=== PATIENT | female | born 1950 | race Caucasian/White ===

== ENCOUNTER 2016-12-31 11:20 | Emergency (ER) | payer MEDICARE, BC | END 2016-12-31 14:20 | disposition home or self-care (01) | LOC: ER1 11:20 | DX: S05.12XA Contusion of eyeball and orbital tissues, left eye, initial encounter (principal); I10 Essential (primary) hypertension; Z79.82 Long term (current) use of aspirin; W22.03XA Walked into furniture, initial encounter; Y93.89 Activity, other specified | CPT/HCPCS: 70450; 70480; 99283 ==

== ENCOUNTER → 2021-02-19 | Outpatient (CLI) | payer MEDICARE, BC ==
[~2021-02-19] MED LIST: CELEBREX 200MG200 MG PO; ELIQUIS 5 MG TAB5 MG PO; ELIQUIS2.5 MG PO; LEXAPRO10 MG PO; NEURONTIN 300300 MG PO; NORVASC 5 MG TAB5 MG PO; ULTRAM50 MG PO; ZANTAC300 MG PO
== END ==
LOC: LAB 15:42
DX: R06.02 Shortness of breath (principal); R60.0 Localized edema
CPT/HCPCS: 36415; 83880; 85379

== ENCOUNTER → 2021-02-22 | Outpatient (CLI) | payer MEDICARE, BC | LOC: US 14:36 | DX: R06.02 Shortness of breath (principal) | CPT/HCPCS: 93970 ==

== ENCOUNTER 2021-02-28 14:01 | Emergency (ER) | payer MEDICARE, BC ==
[2021-02-28 14:42] LABS: HEMOGLOBIN 14.2 gm/dl (12.3-15.3); RED BLOOD COUNT 4.66 M/UL (4.00-5.10); WHITE BLOOD COUNT 5.3 K/UL (4.5-11.0)
[2021-02-28 15:08] LABS: BUN/CREATININE RATIO 21 (0-10)
== END 2021-02-28 18:00 | disposition home or self-care (01) ==
LOC: ER1 14:01
PROVIDERS: Physician Assistant
DX: R00.1 Bradycardia, unspecified (principal); I10 Essential (primary) hypertension
CPT/HCPCS: 80053; 82550; 82553; 83874; 84439; 84443; 84484; 85025; 93005; 99284

== ENCOUNTER → 2021-05-21 | Outpatient (CLI) | payer MEDICARE, BC | LOC: KOH-I 14:40 | DX: J20.9 Acute bronchitis, unspecified (principal); R06.2 Wheezing | CPT/HCPCS: 71046 ==